=== PATIENT | male | born 1990 | race Caucasian/White ===

== ENCOUNTER 2022-02-03 17:31 | Emergency (ER) | payer SELFPAY ==
[2022-02-03 18:18] LABS: Urine Blood Negative (Negative); Urine Glucose Negative (Negative); Urine Protein Negative (Negative)
[2022-02-03 18:35] LABS: Barbiturates NEGATIVE (NEGATIVE); Benzodiazepines NEGATIVE (NEGATIVE); Cocaine NEGATIVE (NEGATIVE); METHAMPHETAM NEGATIVE (NEGATIVE); Methadone NEGATIVE (NEGATIVE); Opiates NEGATIVE (NEGATIVE); Phencyclidine NEGATIVE (NEGATIVE); THC Cannibis NEGATIVE (NEGATIVE)
[2022-02-03 18:36] LABS: Absolute Lymphocytes (CBC) 1.3 K/uL (0.7-4.9); Hematocrit 46.4 % (39.6-49.0); Lymphocytes % 16.6 % (15.3-44.8); MCV 90.1 fL (80-100); RBC Red Blood Cell Count 5.15 M/uL (4.33-5.43)
[2022-02-03 19:08] LABS: SARS-CoV-2 Antigen Rapid Res Negative (Negative)
[2022-02-03 19:18] LABS: ALT/SGPT 30 U/L (12-78); AST/SGOT 14 U/L (15-37); Albumin 4.3 g/dL (3.4-5.0); Alkaline Phosphatase 73 U/L (45-117); BUN Blood Urea Nitrogen 7 mg/dL (7-18); Bicarbonate 28 mmol/L (21-32); Bilirubin Total 0.4 mg/dL (0.2-1.0); Glomerular Filtration Rate 107 ml/min (=/>90); Glucose Level 92 mg/dL (74-106); Potassium 3.6 mmol/L (3.5-5.1); Protein, Total 7.8 g/dL (6.4-8.2); Sodium Level 139 mmol/L (136-145)
[2022-02-03 19:19] LABS: Bilirubin Direct < 0.1 mg/dL (0-0.2)
[2022-02-03] MEDS ORDERED: NICOTINE 21 MG/PAT TD ONE (19:26)
--- NOTE | 2022-02-03 21:54 | EDPHYS ---
Physician Documentation [facility] Name: Calos Thayer Age: 31 yrs Sex: Male : 1990 Arrival Date: 02/03/2022 Time: 17:40 Bed 15 Private MD: ED Physician Patrice Sandra HPI: 02/03 18:29 This 31 yrs old Male presents to ER via Law Enforcement with complaints of Suicidal cp Ideation. 18:30 The patient presents to the emergency department with reported suicidal ideation. cp 18:30 Patient brought to ED by law enforcement after they were called by significant other cp who reported patient left home after argument. Patient reportedly went to local hardware store and bought a rope. Patient denies making any statements to hang and/or hurt himself. Patient denies any suicidal and/or homicidal ideations. Historical: - Allergies: 18:04 No Known Allergies; jl7 - Home Meds: 18:04 levothyroxine oral [Active]; jl7 - PMHx: 18:04 Hypothyroidism; jl7 - PSHx: 18:04 None; jl7 - Immunization history:: Client reports receiving the 2nd dose of the Covid vaccine. - Social history:: Smoking status: Reported history of juuling and/or vaping. Patient/guardian denies using alcohol, street drugs. ROS: 18:33 Constitutional: Negative for body aches, chills, fever, poor PO intake. cp 18:33 Eyes: Negative for injury, pain, redness, and discharge. cp 18:33 Cardiovascular: Negative for chest pain. 18:33 Respiratory: Negative for cough, shortness of breath, wheezing. 18:33 Abdomen/GI: Negative for abdominal pain, nausea, vomiting, and diarrhea. 18:33 Neuro: Negative for altered mental status, dizziness, headache, weakness. 18:33 Psych: Negative for auditory hallucinations, visual hallucinations, homicidal ideation, suicide gesture, suicidal ideation. 18:33 All other systems are negative. Exam: 18:25 ECG was reviewed by the Attending Physician. cp 18:35 Constitutional: The patient appears in no acute distress, alert, awake, non-toxic, well cp developed, well nourished. 18:35 Head/Face: Normocephalic, atraumatic. cp 18:35 Eyes: Periorbital structures: appear normal, Pupils: equal, round, and reactive to light and accomodation, Extraocular movements: intact throughout, Conjunctiva: normal, no exudate, no injection, Sclera: no appreciated abnormality, Lids and lashes: appear normal, bilaterally. 18:35 ENT: External ear(s): are unremarkable, Nose: is normal, Mouth: Lips: moist, Oral mucosa: moist, Posterior pharynx: Airway: no evidence of obstruction, patent. 18:35 Chest/axilla: Inspection: normal. 18:35 Cardiovascular: Rate: tachycardic, Rhythm: regular, Edema: is not appreciated, JVD: is not appreciated. 18:35 Respiratory: the patient does not display signs of respiratory distress, Respirations: normal, no use of accessory muscles, no retractions, labored breathing, is not present, Breath sounds: are clear throughout, no decreased breath sounds, no stridor, no wheezing. 18:35 Abdomen/GI: Inspection: abdomen appears normal, Palpation: abdomen is soft and non-tender, in all quadrants. 18:35 Neuro: Orientation: to person, place \T\ time. Mentation: is normal, Motor: moves all fours, strength is normal, Sensation: is normal. 18:35 Psych: Behavior/mood is pleasant, cooperative, Affect is calm, Patient has no thoughts/intents to harm self or others. Judgement / Insight is normal. Vital Signs: 17:53 BP 132 / 92; Pulse 102; Resp 17; Temp 97.8; Pulse Ox 100% ; Weight 111.13 kg; Height 5 jl7 ft. 10 in. (177.80 cm); Pain 0/10; 17:53 Body Mass Index 35.15 (111.13 kg, 177.80 cm) jl7 MDM: 17:46 Patient medically screened. cp 18:00 Differential diagnosis: drug withdrawal. acute psychotic break, depression, psychosis cp secondary to non-compliance. 19:45 Data reviewed: vital signs, nurses notes, lab test result(s), EKG. cp 19:45 Test interpretation: by ED physician or midlevel provider: ECG. cp 21:30 Other consultation: [facility] who reports patient is stable for discharge to home and cp no immediate threat to himself and/or others. 02/03 17:58 Order name: Acetaminophen; Complete Time: 19:42 eb 02/03 17:58 Order name: Basic Metabolic Panel; Complete Time: 19:43 eb 02/03 17:58 Order name: CBC with Diff; Complete Time: 19:42 eb 02/03 19:43 Interpretation: Normal except: EOSINOPHIL % 5.6. cp 02/03 17:58 Order name: ETOH Level; Complete Time: 19:43 eb 02/03 19:43 Interpretation: Abnormal: ETOH 71. cp 02/03 17:58 Order name: Hepatic Function; Complete Time: 19:43 eb 02/03 17:58 Order name: PT-INR; Complete Time: 19:43 eb 02/03 17:58 Order name: Ptt, Activated; Complete Time: 19:43 eb 02/03 17:58 Order name: Salicylate; Complete Time: 19:43 eb 02/03 17:58 Order name: Urine Drug Screen; Complete Time: 19:43 eb 02/03 17:58 Order name: EKG; Complete Time: 17:59 eb 02/03 17:58 Order name: EKG - Nurse/Tech; Complete Time: 18:21 eb 02/03 17:58 Order name: SARS RAPID; Complete Time: 19:43 eb 02/03 18:18 Order name: Urine Dipstick-Ancillary; Complete Time: 19:43 EDMS 02/03 17:58 Order name: IV Saline Lock; Complete Time: 18:12 eb 02/03 17:58 Order name: Labs collected and sent; Complete Time: 18:12 eb 02/03 17:58 Order name: Suicide Precautions; Complete Time: 18:12 eb 02/03 17:58 Order name: Suicide Screening ([place]) eb 02/03 17:58 Order name: Urine Dipstick-Ancillary (obtain specimen); Complete Time: 18:21 eb EC:25 Rate is 76 beats/min. Rhythm is regular. CA interval is normal. QRS interval is normal. cp QT interval is normal. T waves are Inverted in lead aVR. Interpreted by me. Reviewed by me. Administered Medications: 19:32 Drug: Nicotine Patch 21 mg/24 hr 1 patches Route: Transdermal; Site: anterior chest ke1 wall; Disposition: 02/04 10:16 Co-signature as Attending Physician, Patrice Sandra MD I agree with the assessment and kdr plan of care. Disposition Summary: 02/03/22 21:53 Discharge Ordered Location: Home cp Problem: new cp Symptoms: have improved cp Condition: Stable cp Diagnosis - Acute stress reaction cp Followup: cp - With: Private Physician - When: 2 - 3 days - Reason: Recheck today's complaints Discharge Instructions: - Discharge Summary Sheet cp - Stress, Adult cp Forms: - Medication Reconciliation Form cp - Thank You Letter cp - Antibiotic Education cp - Prescription Opioid Use cp Signatures: Dispatcher [employer] EDMS Patrice Sandra MD MD [facility] Rosalino Charles PA PA cp Hyun Ley RN RN jl7 Delphine Yoon Kouassi RN RN ke1 Corrections: (The following items were deleted from the chart) 20:51 02/03 20:30 Other consultation: [facility] who reports patient is stable for discharge cp to home and no immediate threat to himself and/or others, cp
--- NOTE | 2022-02-03 21:54 | ER ---
Nurse's Notes [facility] Name: Calos Thayer Age: 31 yrs Sex: Male : 1990 Arrival Date: 02/03/2022 Time: 17:40 Bed 15 Private MD: Diagnosis: Acute stress reaction Presentation: 02/03 17:53 Chief complaint: JOSH HOLGUIN Officer Yaniv Howell brought pt in with an GAIL with written jl7 statement " reported that Calos was suicidal. Calos stated to his that he was going to kill himself with a rope. I made scene at [employer] and observed Calos to be exiting the store with a rope in his hand. When Calos saw me in the parking lot he ran and hid throughout the store.". Coronavirus screen: Vaccine status: Patient reports receiving the 2nd dose of the covid vaccine. At this time, the client does not indicate any symptoms associated with coronavirus-19. Ebola Screen: No symptoms or risks identified at this time. Initial Sepsis Screen: Does the patient meet any 2 criteria? No. Patient's initial sepsis screen is negative. Does the patient have a suspected source of infection? No. Patient's initial sepsis screen is negative. Risk Assessment: Do you want to hurt yourself or someone else? Patient reports no desire to harm self or others. Onset of symptoms is unknown. Care prior to arrival: None. 17:53 Method Of Arrival: Law Enforcement: Ruben HOLGUIN jl7 17:53 Acuity: HEATHER 2 jl7 Triage Assessment: 18:04 General: Appears in no apparent distress. uncomfortable, Behavior is cooperative, jl7 anxious. Pain: Denies pain. Historical: - Allergies: 18:04 No Known Allergies; jl7 - Home Meds: 18:04 levothyroxine oral [Active]; jl7 - PMHx: 18:04 Hypothyroidism; jl7 - PSHx: 18:04 None; jl7 - Immunization history:: Client reports receiving the 2nd dose of the Covid vaccine. - Social history:: Smoking status: Reported history of juuling and/or vaping. Patient/guardian denies using alcohol, street drugs. Screenin:00 Fall Risk None identified. ko1 18:06 Abuse screen: Denies threats or abuse. Denies injuries from another. Nutritional jl7 screening: No deficits noted. Tuberculosis screening: No symptoms or risk factors identified. Assessment: 18:00 General: Appears in no apparent distress. comfortable, Behavior is appropriate for age, ko1 agitated. Pain: Denies pain. Neuro: No deficits noted. Cardiovascular: No deficits noted. Respiratory: No deficits noted. GI: No deficits noted. : No deficits noted. EENT: No deficits noted. Derm: No deficits noted. Musculoskeletal: No deficits noted. 19:54 General: Behavior is calm, cooperative, Reports Patient states "Look, I didn't actually tw5 want to kill myself. I was just being a manipulative asshole earlier." Patient at this time denies suicidal ideation. General: Smells of. Neuro: No deficits noted. Respiratory: No deficits noted. Psych: 18:50 [place] Suicide Severity Screening:. ko1 Vital Signs: 17:53 BP 132 / 92; Pulse 102; Resp 17; Temp 97.8; Pulse Ox 100% ; Weight 111.13 kg; Height 5 jl7 ft. 10 in. (177.80 cm); Pain 0/10; 17:53 Body Mass Index 35.15 (111.13 kg, 177.80 cm) jl7 ED Course: 17:40 Patient arrived in ED. ko1 17:40 Rosalino Charles PA is PHCP. cp 17:40 Patrice Sandra MD is Attending Physician. cp 18:00 Sitter at bedside. ko1 18:04 Triage completed. jl7 18:04 Arm band placed on right wrist. jl7 18:05 Rebeca Bacon, CLAUDINE is Primary Nurse. ko1 18:06 Patient has correct armband on for positive identification. Placed in gown. Bed in low jl7 position. Side rails up X 1. Patient is placed in psych hold. 18:12 Acetaminophen Sent. ko1 18:12 Basic Metabolic Panel Sent. ko1 18:12 CBC with Diff Sent. ko1 18:12 ETOH Level Sent. ko1 18:12 Hepatic Function Sent. ko1 18:12 PT-INR Sent. ko1 18:12 Ptt, Activated Sent. ko1 18:12 Salicylate Sent. ko1 18:13 SARS RAPID Sent. ko1 18:21 Inserted saline lock: 20 gauge in right antecubital area, using aseptic technique. zm Blood collected. 18:22 Urine Drug Screen Sent. 19:53 contacted [facility] Crisis Line spoke to Ivania to have a screener evaluate the mw2 patient. 20:35 Primary Nurse role handed off by Rebeca Bacon, CLAUDINE mw2 22:13 Vidhya Goldstein, RN is Primary Nurse. ke1 Administered Medications: 19:32 Drug: Nicotine Patch 21 mg/24 hr 1 patches Route: Transdermal; Site: anterior chest ke1 wall; Medication: 18:06 VIS not applicable for this client. jl7 Outcome: 21:53 Discharge ordered by MD. richter 22:13 Patient left the ED. ke1 Signatures: Rosalino Charles PA PA cp Leal, Jahala RN RN jl7 Jaymie Stroud 2 Michelle Wu 5 Vidhya Goldstein, RN RN ke1 Kathryn Garrido Rebeca Bacon, RN RN ko1
[2022-02-03 23:02] VITALS: BP 132/92; TEMP 97.8; O2SAT 100
--- NOTE | 2022-02-05 16:02 | EKG ---
Test Date: 2022-02-03 Test Time: 18:19:40 Lpn Cma: ALFREDO MEASUREMENT RESULTS: Intervals: Rate: 76 NC: 170 QRSD: 84 QT: 366 QTc: 411 [place]: P: 28 NC: 170 QRS: 27 T: 2 INTERPRETIVE STATEMENTS: Normal sinus rhythm Nonspecific T wave abnormality Abnormal ECG No previous ECG available for comparison Electronically Signed On 02-05-22 15:58:34 CDT by Kumar Martel
== END 2022-02-03 22:13 | disposition home or self-care (01) ==
LOC: ER 17:31
DX: F43.0 Acute stress reaction (principal); E03.9 Hypothyroidism, unspecified
CPT/HCPCS: 36415; 80048; 80076; 80307; 80320; 80329; 81003; 85025; 85610; 85730; 87811; 93005; 99284

== ENCOUNTER 2023-12-02 00:02 | Emergency (ER) | payer SELFPAY ==
--- OUTSIDE RECORDS SUMMARY | 2023-12-02 00:06 | XMS REPORT | Continuity of Care Document ---
Author Name Unknown Address [address] [facility]. [address] [place] [address] [facility] thconnect Address [address] [facility] [address] [place] [address] Care Team Providers Care Pulp Drier Name Role Phone Hiro Irizarry Primary Care Physician [phone] Melinda Cantu Attending Clinician [phone] CATALINA MOORE Attending Clinician Carissa vailaCatalina Kiran MD Attending Clinician Alex Ceballos Attending Clinician Unavailable Doctor Unassigned, [place]upin Attending Clinician U navailable Hiro Irizarry Attending Clinician [phone] Lab, Ang - Db Attending Clinician Unavailable MELINDA MELLO Attending Clinician Unavailable HIRO PATTON Attending Clinician Unavailable Physician, No Primary or Family Admitting Clinic keshia Unavailable Payers Payer Name Policy Type Policy Number Effective Date Expirati on Date Source Problems Condition Name Condition Details Condition Category Status Onset Date Resolution Date Last Treatment Date Treating Clinician Comments Source 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 9-15 00:00: 00 [facility] HSV-1 infection HSV-1 infection Disease Active 9-15 00:00: 00 [facility] Encounter to establish care Encounter to establish care Disease Active 2-03 00:00: 00 [facility] Acquired hypothyroi dism Acquired hypothyroi dism Disease Active 2-03 00:00: 00 [facility] Need for hepatitis C screening test Need for hepatitis C screening test Disease Active 2- 00:00: 00 [facility] Attention deficit hyperactiv ity disorder (ADHD) Attention deficit hyperactiv ity disorder (ADHD) Disease Active Overview: Formattin g of this note might be different from the original. ICD10 Diagnosis Term Administrative Support Specialist [facility] Bipolar disorder Bipolar disorder Disease Active Overview: Formattin g of this note might be different from the original. sees Dr. Gael [facility] Panic attacks Panic attacks Disease Active [facility] Allergies, Adverse Reactions, Alerts Allergy Name Allergy Type Status Severity Reaction(s) Onset Date Inactive Date Treating Clinician Comments Source No Known Allergie s DA Active U 2022-04 0 00:00: 00 [facility] NO KNOWN ALLERGIE S Drug Class Active [facility] Social History Social Habit Start Date Stop Date Quantity Comments Source History of tobacco use Cigarette Smoker [facility] Gender identity [facility] Sexual orientation [facility] Cigarettes smoked current (pack per day) - Reported 2023-01-11 00:00:00 2023-01-11 00:00:00 [facility] Cigarette pack-years 2023-01-11 00:00:00 2023-01-11 00:00:00 [facility] Alcoholic beverage intake 2023-01-11 00:00:00 2023-01-11 00:00:00 Ex-drinker (finding) [facility] Tobacco use and exposure 2023-01-11 00:00:00 2023-01-11 00:00:00 Smokeless tobacco non-user [facility] Alcohol intake 2023-01-11 00:00:00 2023-01-11 00:00:00 Ex-drinker (finding) [facility] Exposure to SARS-CoV-2 (event) 2022-05-01 00:00:00 2022-05-11 09:43:00 Not sure [facility] History of Social function 2022-05-11 00:00:00 2022-05-11 00:00:00 [facility] Sex assigned at 1990 00:00:00 1990 00:00:00 [facility] Smoking Status Start Date Stop Date Source Smokes tobacco daily 2023-01-11 00:00:00 [facility] Medications Ordered Medication Name Filled Medication Name Start Date Stop Date Current Medication? Ordering Clinician Indication Dosage Frequency Signature (SIG) Comments Components Source LEVOTHYROXI NE 50 mcg tablet 09-23 00:00: 00 Yes [id number] 50ug TAKE 1 TABLET BY MOUTH ONCE DAILY IN THE MORNING [facility] VYVANSE 20 mg capsule 2022-04 0-05 00:00: 00 Yes 20mg Take 1 capsule by mouth in the morning. [facility] tamsulosin 0.4 mg 24 hr capsule 2022-04 00:00: 00 Yes .4mg Take 1 capsule by mouth in the morning. [facility] HYDROcodone -acetaminop hen 5-325 mg tablet 2022-04 00:00: 00 Yes TAKE 1 TABLET BY MOUTH EVERY 4 HOURS [facility] ibuprofen 600 mg tablet 2022-04 00:00: 00 Yes 600mg Take 1 tablet by mouth every 6 (six) hours as needed. [facility] ondansetron 4 mg disintegrat ing tablet 2022-04 00:00: 00 Yes DISSOLVE 1 TABLET IN MOUTH EVERY 6 HOURS NEEDED FOR NAUSEA AND VOMITING [facility] busPIRone 5 mg tablet 28 00:00: 00 Yes 5mg Take 1 tablet by mouth in the morning. [facility] levothyroxi ne 50 mcg tablet 9-14 00:00: 00 09-23 00:00 :00 No [id number] 50ug Take 1 tablet by mouth every morning. [facility] levothyroxi ne 50 mcg tablet 05-11 00:00: 12-20 00:00 :00 No [id number] 50ug Take 1 tablet by mouth every morning. [facility] busPIRone 10 mg tablet 05-11 00:00: 00 06-11 05:59 :00 No [id number] 10mg Take 1 tablet by mouth 2 (two) times daily as needed (anxiety) for up to 30 days. [facility] hydrOXYzine 25 mg tablet 12-13 00:00: 05-11 00:00 :00 No 25mg Take 1 tablet by mouth every 6 (six) hours as needed for Anxiety. [facility] pantoprazol e 40 mg EC tablet 12-13 00:00: 00 05-11 00:00 :00 No 40mg Take 1 tablet by mouth daily. [facility] clonazePAM 1 mg tablet 12-13 00:00: 05-11 00:00 :00 No 1mg Take 1 tablet by mouth 3 (three) times daily. [facility] levothyroxi ne (SYNTHROID) 50 mcg tablet 12-26 00:00: 05-11 00:00 :00 No [id number] TAKE 1 TABLET BY MOUTH EVERY MORNING [facility] proMETHazin e (PHENERGAN) 12.5 mg tablet 07-15 00:00: 05-11 00:00 :00 No 12.5mg Take 1 Tab by mouth every 4 (four) hours as needed for Nausea and Vomiting (N/V). [facility] levothyroxi ne (SYNTHROID) 50 mcg tablet 08-25 00:00: 05-11 00:00 :00 No [id number] 50ug Take 1 Tab by mouth every morning. [facility] paliperidon e 3 mg 24 hour tablet 08-25 00:00: 00 05-11 00:00 :00 No [id number] 3mg Take 1 Tab by mouth daily. [facility] Immunizations Ordered Immunization Name Filled Immunization Name Date Status Comments Source TDAP 2017-04-12 00:00:00 Completed [facility] TDAP 2017-04-12 00:00:00 Completed [facility] TDAP 2017-04-12 00:00:00 Completed [facility] TDAP 2017-04-12 00:00:00 Completed [facility] TDAP 2017-04-12 00:00:00 Completed [facility] TDAP 2017-04-12 00:00:00 Completed [facility] TDAP 2017-04-12 00:00:00 Completed [facility] TDAP 2017-04-12 00:00:00 Completed [facility] TDAP Unknown Completed [facility] TDAP Unknown Completed [facility] TDAP Unknown Completed [facility] TDAP Unknown Completed [facility] TDAP Unknown Completed [facility] TDAP Unknown Completed [facility] Vital Signs Vital Name Observation Time Observation Value Comments S ource Systolic blood pressure 2023-01-11 14:28:00 129 mm[Hg] [facility] Diastolic blood pressure 2023-01-11 14:28:00 86 mm[Hg] [facility] Heart rate 2023-01-11 14:28:00 59 /min [facility] Respiratory rate 2023-01-11 14:28:00 16 /min [facility] Body height 2023-01-11 14:28:00 177.8 cm [facility] Body weight 2023-01-11 14:28:00 121.473 kg [facility] BMI 2023-01-11 14:28:00 38.43 kg/m2 [facility] Oxygen saturation in Arterial blood by Pulse oximetry 2023-01-11 14:28:00 96 /min [facility] Systolic blood pressure 2022-12-27 19:11:00 130 mm[Hg] [facility] Diastolic blood pressure 2022-12-27 19:11:00 79 mm[Hg] [facility] Heart rate 2022-12-27 19:11:00 73 /min [facility] Respiratory rate 2022-12-27 19:11:00 18 /min [facility] Body height 2022-12-27 19:11:00 177.8 [facility] 2022-12-27 19:11:00 123.877 [facility] BMI 2022-12-27 19:11:00 39.19 kg/m2 [facility] Oxygen saturation in Arterial blood by Pulse oximetry 2022-12-27 19:11:00 96 /min [facility] Body weight 2022-12-20 15:56:00 119.75 kg [facility] BMI 2022-12-20 15:56:00 36.82 kg/m2 [facility] Oxygen saturation in Arterial blood by Pulse oximetry 2022-12-20 15:56:00 97 /min [facility] Systolic blood pressure 2022-12-20 15:56:00 123 mm[Hg] [facility] Diastolic blood pressure 2022-12-20 15:56:00 80 mm[Hg] [facility] Heart rate 2022-12-20 15:56:00 56 /min [facility] Body temperature 2022-12-20 15:56:00 36.83 Nadya [facility] Body height 2022-12-20 15:56:00 180.3 cm [facility] Systolic blood pressure 2022-05-11 15:58:00 141 mm[Hg] [facility] Diastolic blood pressure 2022-05-11 15:58:00 87 mm[Hg] [facility] Heart rate 2022-05-11 15:58:00 66 /min [facility] Body temperature 2022-05-11 15:58:00 37 Nadya [facility] Body height 2022-05-11 15:58:00 180.3 cm [facility] Body weight 2022-05-11 15:58:00 117.935 kg [facility] BMI 2022-05-11 15:58:00 36.26 kg/m2 [facility] Oxygen saturation in Arterial blood by Pulse oximetry 2022-05-11 15:58:00 97 /min [facility] Procedures Procedure Date / Time Performed Performing Clinicia n Source ASSIGNMENT OF BENEFITS 2022-05-11 15:44:54 Docto r Unassigned, Maupin [facility] Encounters Start Date/Time End Date/Time Encounter Type Admission Type Attending Clinicians Care Facility Care Department Encounter ID Source 2023-09-24 00:00:00 2023-09-24 07:29:32 [facility] [id number] 350.1.13.10 4.2.7.2.686 [id number] [facility] 2023-01-11 09:40:00 2023-01-11 10:47:19 Outpatient R CATALINA MOORE [facility] [id number] [facility] 2023-01-11 09:40:00 2023-01-11 10:47:19 Office Visit Catalina Moore [facility] 1.2.840.114 350.1.13.10 4.2.7.2.686 [id number] [facility] 2023-01-07 16:26:00 2023-01-07 17:54:00 Emergency EM Alex Ceballos [facility] [id number] [facility] 2022-12-27 14:20:00 2022-12-27 14:38:26 Outpatient R CATALINA MOORE [facility] [id number] [facility] 2022-12-27 14:20:00 2022-12-27 14:38:26 Office Visit Catalina Moore [facility] 1.2.840.114 350.1.13.10 4.2.7.2.686 [id number] [facility] 2022-12-25 00:00:00 2022-12-25 00:00:00 Patient Secure Msg Doctor Unassigned, [place] [facility] 1.2840.114 350.1.13.10 4.2.7.2.686 [id number] [facility] 2022-12-24 00:00:00 2022-12-24 00:00:00 Telephone SalomonHiro gutierrez [facility] 1.2840.114 350.1.13.10 4.2.7.2.686 [id number] [facility] 2022-12-20 11:15:00 2022-12-20 11:30:00 Occupational Therapist Visit Lab, Stan Juarez Melinda Mello [facility] 1.2840.114 350.1.13.10 4.2.7.2.686 [id number] [facility] 2022-12-20 10:30:00 2022-12-20 11:13:43 Outpatient R RIAZNEHEMIAH VELARDELIE [facility] [id number] [facility] 2022-12-20 10:30:00 2022-12-20 11:13:43 Office Visit Mel[facility] 1.840.114 350.1.13.10 4.2.7.2.686 [id number] [facility] 2022-05-11 10:30:00 2022-05-11 10:45:00 Occupational Therapist Visit Lab, Stan LatifHiro gutierrez [facility] 1.284.114 350.1.13.10 4.2.7.2.686 [id number] [facility] 2022-05-11 10:00:00 2022-05-11 10:18:46 Outpatient R VISHAL HIRO [facility] [id number] [facility] 2022-05-11 10:00:00 2022-05-11 10:18:46 Office Visit Hiro Patton [facility] 1.2.840.114 350.1.13.10 4.2.7.2.686 [id number] [facility] 2022-05-11 00:00:00 2022-05-11 00:00:00 Orders Only Doctor Unassigned, Maupin [facility] [id number] 350.1.13.10 4.2.7.2.686 [id number] [facility] Results Test Description Test Time Test Comments Results Result Co mments Source - CT ABD PELVIS W/O [id number] 17:12:00 [facility] : 1990 Sex: M Name: CALOS ESCOTO FSED : 1990 Age/S: 32 / M [address] [facility] Unit #: [id number] Loc: Radha Durant [address] Phys: Alex Ceballos MD Acct: [id number] Dis Date: Status: PRE ER PHONE #: Exam Date: 01/07/2023 1642 FAX #: Reason: left flank pain EXAMS: CPT CODE: [id number] CT ABD PELVIS W/O CONT 54324 LOCATION: Q15 HISTORY: 32-year-old male presents with left flank pain. COMMENT:Axial CT imaging of this patient's abdomen and pelvis was obtained without IV contrast. Coronal andsagittal soft tissue reconstructions were included. Unless otherwise specified, incidental findings do not require dedicated imaging follow-up. CONTRAST: None One or more of the following dose reduction techniques are used: Automated exposure control, adjustment of the mA and/or kV according the patient size, and/or utilization of iterative reconstruction technique. FINDINGS: The lung bases are clear. The cardiac silhouette is unremarkable. There is a small obstructing stone seen in the proximal left ureter located just distal to the ureteropelvic junction overlying the psoas muscle at the level of the L3-4 interspace. This stone is approximately 3 mm in diameter. There is mild hydroureterand pelvocaliectasis proximal to this obstructing stone. The kidney does not appear edematous, howev er. No other stones are seen in the left kidney, and in the right kidney a very tiny nonobstructingstone is seen in the lower pole measuring under 1 mm diameter. The liver, spleen, pancreas, adrenalglands, and gallbladder are unremarkable. The upper intestinal tract and the small intestine are un remarkable. A normal-appearing appendix is seen. The colon is unremarkable. There is no ascites or adenopathy present. PAGE 1 Signed Report (CONTINUED) Name: CALOS ESCOTO FSED : 1990 Age/S: 32 / M [address] [facility] Unit #: [id number] Loc: Radha Durant [address] Phys: Alex Ceballos MD Acct: [id number] Dis Date: Status: PRE ER PHONE #: Exam Date: 01/07/2023 7391 FAX #: Reason: left flank pain EXAMS: CPT CODE: [id number] CT ABD PELVIS W/O CONT 91325 (Continued) In the pelvis the urinary bladder, prostate gland, and seminal vesicles are unremarkable. The vascular anatomy is unremarkable. The musculoskeletal anatomy is unremarkable. IMPRESSION: There is a 3 mm obstructing stone seen in this patient's mid left ureter as outlined above. A tiny nonobstructing stone is seen inthe lower pole cortex of the right kidney. No acute finding is seen elsewhere in the abdomen or pelvis. at 1712 Reported and signed by: Dorian Crawford M.D. CC: Alex Ceballos MD Technologist:Lupe Ibarra RT(R)(CT) CTDI: DLP: Trnscb Date/Time: 01/07/2023 (482) [email or web address] Orig Print D/T: S: 01/07/2023 (1909) PAGE 2 Signed ReportCOMPLETE BLOOD COUNT (CBC) 2023-01-07 17:00:00* Test Item Value Reference Range Interpretation Comme nts POC WHITE BLOOD CELL (test code = EDWBC) 13.9 10 3/uL 3.9-9.4 H Testing perf ormed at:[facility] [id number] [place], [place] [address] POC RED BLOOD CELL (test code = EDRBC) 4.75 10 6/uL 4.14-5.52 N POC HEMOGLOBIN (test code = EDHGB) 14.6 g/dL 11.9-16.7 N POC HEMATOCRIT (test code = EDHCT) 43.2 % 36.1-49.4 N POC MEAN CELL VOLUME (test code = EDMCV) 90.9 fL 83.2-96.0 N POC MEAN CELL HEMOGLOBIN (test code = EDMCH) 30.7 pg 27.1-32.5 N POC MEAN CELL HGB CONC (test code = EDMCHC) 33.8 g/dL 31.0-35.8 N POC PLATELET COUNT (test code = EDPLT) 325 10 3/uL 155-330 N POC RED CELL DISTRIB WIDTH (test code = EDRDW-CV) 12.5 % 12.0-15.0 N POC LYMPHOCYTES % (test code = EDLYM%) 17.6 % 16.8-42.5 N POC MIXED CELLS % (test code = EDMXD%) 9.4 % 3.2-16.9 N POC NEUTROPHILS % (test code = EDNEUT%) 73.0 % 46.4-74.7 N POC LYMPHOCYTES # (test code = EDLYM#) 2.40 k/mm3 0.9-3.0 N POC MIXED CELLS # (test code = EDMXD#) 1.3 10 3/uL 0.2-1.1 H POC NEUTROPHILS # (test code = EDNEUT#) 10.20 10 3/uL 2.2-6.4 H POC MEAN PLATELET VOLUME (test code = EDMPV) 10.8 fL 8.7-12.6 N Notes Date/Time Note Provider Source 2023-09-27 09:39:17 Follow-up for refills and fasting labs. [facility] 2023-09-24 07:29:00 Last Refilled: levothyroxine 50 mcg tablet 90 tablet 1 12/20/2022 -- -- Sig: Take 1 tablet by mouth every morning. Sent to pharmacy as: levothyroxine 50 mcg tablet (SYNTHROID) Class: eRX Route: Oral Order: [id number] Date/Time Signed: 12/20/2022 11:03 E-Prescribing Status: Receipt confirmed by pharmacy (12/20/2022 11:03 AM CDT) Recent Visits Date Type Provider Dept 01/11/23 Office Visit Catalina Moore MD [facility] 12/27/22 Office Visit Catalina Moore MD [facility] 12/20/22 Office Visit Melinda Mello PA [facility] 05/11/22 Office Visit Hiro Patton FNP [facility] Showing recent visits within past 540 days with a meds authorizing provider and meeting all other requirements Future Appointments No visits were found meeting these conditions. Showing future appointments within next 150 days with a meds authorizing provider and meeting all other requirements Kimberly Pollock [facility] 2023-01-07 16:31:00 [facility] ([facility]) EMERGENCY PROVIDER REPORT REPORT#:[id number] REPORT STATUS: Signed DATE:01/07/23 TIME: 1630 PATIENT: CALOS ESCOTO UNIT #: [id number] ROOM/BED: AGE: 32 SEX: M PCP PHYS: No Primary or Family Physician SERVICE AUTHOR: Alex Ceballos MD * ALL edits or amendments must be made on the electronic/computer document * HPI- Male Free Text HPI Notes Free Text HPI Notes Patient presents to emergency department for left flank pain that started at 1230 today. No fever chills diarrhea chest pain shortness of breath. Patient had episode of nausea and vomiting associated with flank pain. Patient has history of kidney stones and feels this is similar. Nothing makes symptoms better nothing makes symptoms worse. Patient also noted episode of blood in urine. General Initial Greet Date/Time 01/07/231628 Presentation Chief Complaint Abdominal pain, Blood in urine, Flank pain L Review of Systems ROS Statements All systems rev neg except as marked. Basic Review of Systems Basic ROS EYES: No redness, ENT: No sore throat, RESP: No SOB, CV: No chest pain , HEM: No bleeding/bruising, NEURO: No change MS, NEURO: No focal deficit Focused Review of Systems Constitutional Denies: Chills, Fatigue, Fever, Malaise. GI Reports: Abdominal pain, Nausea, Vomiting. Denies: Anorexia. Male Reports: Flank pain, Hematuria. Denies: Dysuria. Musculoskeletal Reports: Back pain. Denies: Extremity pain, Extremity swelling, Joint pain, Joint swelling. Past Medical History - Adult Stated Complaint L FLANK PAIN Allergies Coded Allergies: No Known Allergies (01/07/23) Physical Exam Vital Signs Vital Signs First Documented: Result Date Time Pulse Ox 100 01/07 162 B/P 176/112 01/07 162 B/P Mean 133 01/07 1626 O2 Delivery Room air 01/07 1626 Temp 97.7 01/07 1626 Pulse 56 01/07 1626 Resp 16 01/07 1626 Last Documented: Result Date Time Pulse Ox 100 01/07 175 B/P 156/78 01/07 1753 B/P Mean 104 01/07 1753 Temp 97.4 01/07 1753 Pulse 64 01/07 1753 Resp 16 01/07 1753 O2 Delivery Room air 01/07 1626 Review of Vital Signs Reviewed Basic Physical Exam Basic PE GEN: Well appearing/NAD, HEAD: Atraumatic/NC, EYES: PERRL, conj clear, ENT: Membranes moist, NECK: Supple, RESP: No resp distress, CV: Reg rate rhythm, ABD: Soft/non-tender, EXT: No gross abnormality, SKIN: No rashes, warm/ dry, NEURO: alert oriented, NEURO: gross movement NL Focused PE General/Const General/Const Awake, Alert, No acute distress, Well appearing, Well developed Abdomen/GI Abdomen/GI Atraumatic, Soft, Non-tender, No distention Genitourinary General Exam deferred Interpretation Diagnostics Lab Results Interpretation Results Laboratory Tests: 01/07 01/07 1704 1658 Chemistry POC Sodium (134 - 147 mmol/L) 144 POC Potassium (3.4 - 5.8 mmol/L) 4.4 POC Chloride (100 - 108 mmol/L) 111 H POC Total CO2 (24 - 30 mmol/L) 28 POC Anion Gap (0 - 20) 5 POC BUN (3 - 25 mg/dL) 16 POC Creatinine (0.6 - 1.3 mg/dL) 1.3 Est GFR (CKD-EPI 2020) (>or=60 mL/min) 75 POC Glucose (70 - 110 mg/dL) 117 H POC Calcium (7.0 - 11.0 mg/dL) 10.0 POC Total Bilirubin (0.0 - 1.0 mg/dL) 0.6 POC AST (15 - 37 U/L) 20 POC ALT (30 - 65 U/L) 15 L POC Alk Phosphatase (20 - 125 U/L) 75 POC Total Protein (5.0 - 8.0 g/dL) 7.7 POC Albumin (3.5 - 5.0 g/dL) 4.6 Hematology POC WBC (3.9 - 9.4 10 3/uL) 13.9 H POC RBC (4.14 - 5.52 10 6/uL) 4.75 POC Hgb (11.9 - 16.7 g/dL) 14.6 POC Hct (36.1 - 49.4 %) 43.2 POC MCV (83.2 - 96.0 fL) 90.9 POC MCH (27.1 - 32.5 pg) 30.7 POC MCHC (31.0 - 35.8 g/dL) 33.8 POC RDW Coeff of Rolan (12.0 - 15.0 %) 12.5 POC Platelet Count (155 - 330 10 3/uL) 325 POC MPV (8.7 - 12.6 fL) 10.8 POC Mixed Cells % (3.2 - 16.9 %) 9.4 POC Neut # (2.2 - 6.4 10 3/uL) 10.20 H POC Lymph # (0.9 - 3.0 k/mm3) 2.40 POC [place] # (0.2 - 1.1 10 3/uL) 1.3 H POC Lymphocytes % (16.8 - 42.5 %) 17.6 POC Neutrophils % (46.4 - 74.7 %) 73.0 Recent Impressions: CAT SCAN - CT ABD PELVIS W/O CONT 01/07 1644 Report Impression - Status: SIGNED Entered: 01/07/2023 1715 IMPRESSION: There is a 3 mm obstructing stone seen in this patient's mid left ureter as outlined above. A tiny nonobstructing stone is seen in the lower pole cortex of the right kidney. No acute finding is seen elsewhere in the abdomen or pelvis. Impression By: [email or web address] - Dorian Crawford M.D. Re-Evaluation MDM Free Text MDM Notes Free Text MDM Notes Patient presents to emergency department for left flank pain. Patient found to have mid ureteral 3 mm stone. Patient improved with Toradol and morphine. Patient prescribed hydrocodone ibuprofen Zofran and Flomax. Patient referred to urology and discharged in stable condition. ED Course Medication(s) Ordered Medication(s) Ordered: Central Nervous System Agents Sig/Lela Start time Last Medication Dose Route Stop Time Status Admin Ketorolac 30 MG X1ED STA 01/07 1630 DC 01/07 Tromethamine IV 01/07 1631 1644 Morphine Sulfate 4 MG X1ED STA 01/07 1630 DC 01/07 IV 01/07 1631 1644 Gastrointestinal Drugs Sig/Lela Start time Last Medication Dose Route Stop Time Status Admin Ondansetron HCl 4 MG X1ED STA 01/07 1630 DC 01/07 IV 01/07 1631 1644 Differential Diagnosis Differential Diagnosis Abrasion, Bladder outlet obstruct, Cellulitis, Cystitis, acute, Prostatitis, Pyelonephritis, acute Patient Discharge Departure Vital Signs/Condition Vital Signs First Documented: Result Date Time Pulse Ox 100 01/07 1626 B/P 176/112 01/07 1626 B/P Mean 133 01/07 162 O2 Delivery Room air 01/07 162 Temp 97.7 01/07 162 Pulse 56 01/07 1626 Resp 16 01/07 162 Last Documented: Result Date Time Pulse Ox 100 01/07 1753 B/P 156/78 01/07 1753 B/P Mean 104 01/07 1753 Temp 97.4 01/07 1753 Pulse 64 01/07 1753 Resp 16 01/07 1753 O2 Delivery Room air 01/07 1626 All vital signs available at the time of this entry have been reviewed. Clinical Impression Clinical Impression Primary Impression: Ureterolithiasis Disposition Decision Discharge )( Discharged to Home Yes )( Time 1737 )( Date 01/07/23 Discharge/Care Plan Rx Drug Database Reviewed Yes (Auto) Prescriptions Current Visit Scripts TAMSULOSIN ER (FLOMAX) 0.4 MG PO DAILY TAMSULOSIN ER (FLOMAX) 0.4 MG PO DAILY #5 CAPS IBUPROFEN (MOTRIN) 600 MG PO Q6H PRN PRN PAIN IBUPROFEN (MOTRIN) 600 MG PO Q6H PRN PRN PAIN #30 TABS HYDROcodone/APAP (HYDROcodone/APAP 5/325) 1 TAB PO Q4H HYDROcodone/APAP (HYDROcodone/APAP 5/325) 1 TAB PO Q4H #15 TABS ONDANSETRON ODT (ZOFRAN ODT) 4 MG PO Q6H PRN PRN NAUSEA/VOMITING ONDANSETRON ODT (ZOFRAN ODT) 4 MG PO Q6H PRN PRN NAUSEA/VOMITING #15 TABS Patient Instructions ED Kidney Stone with Pain Referrals Provider Referral: Izaiah Ritter MD Address: [address] [place] [address] at 1900 RPT #:[id number] END OF REPORT [facility] 2022-12-24 11:42:51 Formatting of this n ote might be different from the original. Calos Escoto is a 32 year old male Patient is calling stating he was told to schedule an appointment with provider in clinic for ADHD evaluation however he does not recall name. Please advise [phone] (home) Yenny Zaragoza [facility] 2022-12-20 11:15:00 Formatting of this n ote is different from the original. Images from the original note were not included. Venipuncture collection performed by clean technique on the left anticubitus. Total of 1 attempts were made. Slight pressure and a bandage/dressing were applied to the site(s). The patient experienced no complications. The following specimens were processed according to instructions and sent to [facility] laboratories per lab order on 12/20/2022 : LT BLUE SST 4 RED 1 LAV 2 PPT DK GREEN (LiHep) DK GREEN (SodH) GARCÍA DK BLUE (K2) DK BLUE (S) ACD Blood Culture NIPT/NTD Patient has been identified by and name and was provided with cup, antiseptic towelette, and clean catch instructions. 1 urine specimen(s) sent. Unpreserved 1 Urine Culture Aptima tube Other urine [facility]
[2023-12-02 01:54] LABS: SARS-CoV-2 Antigen CONTROL BLUE LINE VIS/BG OK; SARS-CoV-2 Antigen Rapid Res Negative (Negative)
--- NOTE | 2023-12-02 02:04 | ER ---
Nurse's Notes [facility] Name: Calos Thayer Age: 33 yrs Sex: Male : 1990 Arrival Date: 12/02/2023 Time: 00:02 Bed 6 Private MD: Diagnosis: Acute maxillary sinusitis Presentation: 12/01 01:14 Chief complaint: Patient states: has been having cough, congestion, sinus pain, and al5 runny nose. took temp and bp and patient bp was elevated. Coronavirus screen: congestion, cough unrelated to allergies, runny nose. Ebola Screen: No symptoms or risks identified at this time. Initial Sepsis Screen: Does the patient meet any 2 criteria? No. Patient's initial sepsis screen is negative. Does the patient have a suspected source of infection? No. Patient's initial sepsis screen is negative. Risk Assessment: Do you want to hurt yourself or someone else? Patient reports no desire to harm self or others. Onset of symptoms was December 02, 2023. 01:14 Method Of Arrival: Ambulatory al5 01:14 Acuity: HEATHER 3 al5 Triage Assessment: 01:16 General: Appears in no apparent distress. Behavior is calm, cooperative. Pain: Denies al5 pain. EENT: Reports nasal congestion nasal discharge. Neuro: Level of Consciousness is awake, alert, obeys commands, Oriented to person, place, time, situation. Cardiovascular: Reports high blood pressure Capillary refill < 3 seconds Patient's skin is warm and dry. Respiratory: Reports cough that is Airway is patent Respiratory effort is even, unlabored, Respiratory pattern is regular, symmetrical. GI: No signs and/or symptoms were reported involving the gastrointestinal system. : No signs and/or symptoms were reported regarding the genitourinary system. Derm: Skin is intact, Skin is pink, warm \T\ dry. normal. Musculoskeletal: No signs and/or symptoms reported regarding the musculoskeletal system. Historical: - Allergies: 01:15 No Known Allergies; al5 - PMHx: 01:15 Hypothyroidism; al5 - PSHx: 01:15 None; al5 - Immunization history:: Adult Immunizations up to date. - Infectious Disease History:: Denies. - Social history:: Smoking status: Patient reports the use of cigarette tobacco products, smokes one-half pack cigarettes per day. - Family history:: not pertinent. Screenin:18 [facility] ED Fall Risk Assessment (Adult) History of falling in the last 3 months, al5 including since admission No falls in past 3 months (0 pts) Confusion or Disorientation No (0 pts) Intoxicated or Sedated No (0 pts) Impaired Gait No (0 pts) Mobility Assist Device Used No (0 pt) Altered Elimination No (0 pt) Score/Fall Risk Level 0 - 2 = Low Risk Oriented to surroundings, Maintained a safe environment, Hourly rounding (assess needs \T\ fall precautionary measures) done. Abuse screen: Denies threats or abuse. Denies injuries from another. Nutritional screening: No deficits noted. Tuberculosis screening: No symptoms or risk factors identified. Assessment: :18 Reassessment: see triage assessment. Pain: Pain does not radiate. Pain began 2 hours al5 ago. Vital Signs: 01:14 BP 150 / 108; Pulse 65; Resp 18; Temp 98.2; Pulse Ox 98% on R/A; Weight 122.47 kg; al5 Height 5 ft. 11 in. ; Pain 0/10; 01:14 Body Mass Index 37.66 (122.47 kg, 180.34 cm) al5 01:14 Pain Scale: Adult al5 ED Course: 00:09 Patient arrived in ED. [email or web address] 00:29 Ottoniel Parmar MD is Attending Physician. rt 01:14 Rani Montanez, CLAUDINE is Primary Nurse. al5 01:15 Triage completed. al5 01:17 Arm band placed on right wrist. Patient placed in an exam room, on a stretcher. al5 01:18 Patient has correct armband on for positive identification. Bed in low position. Call al5 light in reach. Side rails up X 1. Provided Education on: processes and procedures. Client placed on continuous cardiac and pulse oximetry monitoring. NIBP monitoring applied. pvc monitor on. 01:18 No provider procedures requiring assistance completed. O2 via room air. al5 02:24 Patient did not have IV access during this emergency room visit. al5 Administered Medications: No medications were administered Medication: 01:18 VIS not applicable for this client. al5 Outcome: 02:04 Discharge ordered by . rt 02:24 Discharged to home ambulatory, with family, al5 02:24 Condition: good 02:24 Discharge instructions given to patient, Instructed on discharge instructions, follow up and referral plans. medication usage, Demonstrated understanding of instructions, follow-up care, medications, 02:25 Patient left the ED. al5 Signatures: Bobbi [email or web address] Ottoniel Parmar MD MD rt Rani Montanez RN RN al5
--- NOTE | 2023-12-02 02:05 | EDPHYS ---
Physician Documentation [facility] Name: Calos Thayer Age: 33 yrs Sex: Male : 1990 Arrival Date: 12/02/2023 Time: 00:02 Bed 6 Private MD: ED Physician Ottoniel Parmar HPI: 12/01 04:58 This 33 yrs old Male presents to ER via Ambulatory with complaints of High Blood rt Pressure, Flu Symptoms. 04:58 Patient presents to the ED with sinus pain for past several days. The checked the rt patient's blood pressure, noted that it was elevated. Denies other acute complaints at this time, symptoms are mild in severity, no other aggravating or alleviating factors.. Historical: - Allergies: 01:15 No Known Allergies; al5 - PMHx: :15 Hypothyroidism; al5 - PSHx: 01:15 None; al5 - Immunization history:: Adult Immunizations up to date. - Infectious Disease History:: Denies. - Social history:: Smoking status: Patient reports the use of cigarette tobacco products, smokes one-half pack cigarettes per day. - Family history:: not pertinent. ROS: 04:58 Constitutional: Negative for fever, chills, and weight loss, Cardiovascular: Negative rt for chest pain, palpitations, and edema, Respiratory: Negative for shortness of breath, cough, wheezing, and pleuritic chest pain, Abdomen/GI: Negative for abdominal pain, nausea, vomiting, diarrhea, and constipation, Skin: Negative for injury, rash, and discoloration, Neuro: Negative for headache, weakness, numbness, tingling, and seizure, 04:58 ENT: Positive for Sinus pain, sore throat, Exam: 04:58 Constitutional: This is a well developed, well nourished patient who is awake, alert, rt and in no acute distress. Chest/axilla: Normal chest wall appearance and motion. Nontender with no deformity. No lesions are appreciated. Cardiovascular: Regular rate and rhythm with a normal S1 and S2. No gallops, murmurs, or rubs. Normal PMI, no JVD. No pulse deficits. Respiratory: Lungs have equal breath sounds bilaterally, clear to auscultation and percussion. No rales, rhonchi or wheezes noted. No increased work of breathing, no retractions or nasal flaring. Abdomen/GI: Soft, non-tender, with normal bowel sounds. No distension or tympany. No guarding or rebound. No evidence of tenderness throughout. 04:58 Head/face: Palpation tenderness palpation over maxillary sinuses. Vital Signs: 01:14 BP 150 / 108; Pulse 65; Resp 18; Temp 98.2; Pulse Ox 98% on R/A; Weight 122.47 kg; al5 Height 5 ft. 11 in. ; Pain 0/10; 01:14 Body Mass Index 37.66 (122.47 kg, 180.34 cm) al5 01:14 Pain Scale: Adult al5 MDM: 01:25 Patient medically screened. rt 04:58 Differential diagnosis: Asymptomatic hypertension, sinusitis, COVID. Data reviewed: rt vital signs, nurses notes, lab test result(s). Test considered but Not performed: Other Details Patient has asymptomatic hypertension, offered patient EKG, labs, however, do not believe this necessary. Patient agrees to forego these.. Counseling: I had a detailed discussion with the patient and/or guardian regarding the historical points, exam findings, and any diagnostic results supporting the discharge/admit diagnosis, lab results, the need for outpatient follow up, to return to the emergency department if symptoms worsen or persist or if there are any questions or concerns that arise at home. Response to treatment: the patient's symptoms have markedly improved after treatment. 12/01 01:32 Order name: KRISTA BARRERA; Complete Time: 01:56 rt Administered Medications: No medications were administered Disposition Summary: 12/02/23 02:04 Discharge Ordered Notes: Location: Home rt Problem: new rt Symptoms: have improved rt Condition: Stable rt Diagnosis - Acute maxillary sinusitis rt Followup: rt - With: Private Physician - When: 2 - 3 days - Reason: Discharge Instructions: - Discharge Summary Sheet rt - Hypertension, Adult rt - Sinusitis, Adult rt Forms: - Medication Reconciliation Form rt - Antibiotic Education rt - Prescription Opioid Use rt - Patient Portal Instructions rt - Leadership Thank You Letter rt Prescriptions: - Amoxicillin 875 mg Oral Tablet - take 1 tablet ORAL route every 12 hours for 10 days; 20 tablet; Refills: 0, rt Product Selection Permitted Signatures: Dispatcher [employer] EDMD Ottoniel Parmar MD MD rt Langhorst, Rani, RN RN al5
[2023-12-02 03:24] VITALS: BP 150/108; TEMP 98.2; O2SAT 98
== END 2023-12-02 02:25 | disposition home or self-care (01) ==
LOC: ER 00:02
DX: J01.00 Acute maxillary sinusitis, unspecified (principal); Z11.52 Encounter for screening for COVID-19
CPT/HCPCS: 36415; 87811; 99284